=== PATIENT | male | born 1965 | race Caucasian/White ===

== ENCOUNTER → 2024-10-13 08:31 | Outpatient (BNVA) | payer MEDICAID, SELFPAY | PROVIDERS: Visit Provider Orthopaedic Surgery | DX: M54.2 Cervicalgia (principal); M54.9 Dorsalgia, unspecified | CPT/HCPCS: 72050; 72072 ==

== ENCOUNTER 2025-02-14 11:38 | Inpatient (IN) | payer MEDICAID, SELFPAY ==
[2025-02-14] VITALS (56 sets, daily range): BP systolic 100–139; BP diastolic 69–111; PULSE 106–170; RESP 13–29; TEMP 36.7–36.9; O2SAT 91–99; BMI 28.1
--- NOTE | 2025-02-14 11:38 | XRR_ITS ---
PROCEDURE INFORMATION: Exam: XR Chest Exam date and time: 02/14/2025 11:52 AM Age: 59 years old Clinical indication: Pain; Chest pressure; Additional info: Cp TECHNIQUE: Imaging protocol: Radiologic exam of the chest. Views: 1 view. COMPARISON: CR XR cervical spine 4-5V [id number] 10/13/2024 8:33 AM FINDINGS: Lungs: Unremarkable. No consolidation. Pleural spaces: Unremarkable. No pleural effusion. No pneumothorax. Heart/Mediastinum: Unremarkable. No cardiomegaly. Bones/joints: Unremarkable. XR/XR chest 1V portable [id number] IMPRESSION: No acute findings.
--- OUTSIDE RECORDS SUMMARY | 2025-02-14 11:41 | XMS_ITS | Encounter Summary ---
Author Organization [employer] [facility] Address [address] [place] [address] Care Team Providers Care Assistant Farm Operations Manager Name Role Phone Unavailable Primary Care Provider Unavailabl e Encounter Details Date Type Department Care Team (Late st Contact Info) Description 01/07/2001 Outpatient Historical [facility] [place] Tavo Dunne MD [address] [place] [address] Dental caries (Primary Dx) Social History Tobacco Use Types Packs/Day Years Used Date Smoking Tobacco: Never Assessed Sex and Gender Information Value Date Recorded Sex Assigned at Not on file 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
--- OUTSIDE RECORDS SUMMARY | 2025-02-14 11:41 | XMS_ITS | Encounter Summary ---
Author Organization [employer] [facility] Address [address] [place] [address] Care Team Providers Care Tight Cooper Name Role Phone Unavailable Primary Care Provider Unavailabl e Encounter Details Date Type Department Care Team (Late st Contact Info) Description 01/08/2001 Outpatient Historical [facility] [place] [facility] Tavo Dunne MD [address] [place] [address] Dental caries (Primary Dx) Social History Tobacco Use Types Packs/Day Years Used Date Smoking Tobacco: Never Assessed Sex and Gender Information Value Date Recorded Sex Assigned at Not on file 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
--- OUTSIDE RECORDS SUMMARY | 2025-02-14 11:41 | XMS_ITS | Clinical Summary ---
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
--- OUTSIDE RECORDS SUMMARY | 2025-02-14 11:41 | XMS_ITS | Encounter Summary ---
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
--- NOTE | 2025-02-14 11:48 | ECG_ITS ---
[employer] Test Date: 2025-02-14 Pat Name: Diego Alexandra Department: Room: Gender: Male Search Developer: : 1965 Requested By: Terese Escobar Order Number: [id number] Orozco MD: Thang Marroquin M.D. Measurements Intervals [place] Rate: 171 P: 0 PA: 0 QRS: 1 QRSD: 158 T: -78 QT: 280 QTc: 473 Interpretive Statements ARIAL FLUTTER VERSUS ATRIAL TACHYCARDIA WITH 2:1 CONDUCTION INTRAVENTRICULAR CONDUCTION DELAY [130+ ms QRS DURATION] POSSIBLE LATERAL MYOCARDIAL INFARCTION OF INDETERMINATE AGE[40+ ms Q WAVE AND/OR ST/T ABNORMALITY IN I/aVL/V5/V6] No previous ECG available for comparison Electronically Signed On 02-14-2025 12:01:52 EYEGLASS FRAMES POLISHER by Thang Marroquin M.D. [id number]
--- NOTE | 2025-02-14 11:55 | ED_ITS ---
HPI - Chest Pain 2 General: Chief Complaint: Chest Pain Stated Complaint: cp, L arm tingling/numbness Time Seen by Provider: 02/14/25 11:50 Source: patient Mode of arrival: ambulatory Limitations: no limitations History of Present Illness: 59-year-old male states he has been havi ng chest pain over the last few days. States he has hearts been racing as well now and palpitation since 1 week ago. Heart rate here is 170s. Denies any history of A-fib or SVT. Denies any shortness of breath denies any worse improved factors. States pain currently is a 5 out of 10 Related Data Home Medications ?Medication ?Instructions ?Recorded ?Confirmed No Known Home Medications 02/14/2501/18 Allergies Allergy/AdvReac Type Severity Reaction Status Date / Time No Known Allergies Allergy Verified 11/24/24 07:40 Review of Systems 2 Card: Reports: chest pain [facility] ED 2 PFSH: Social History Smoking and tobacco/nicotine status: former use of tobacco/nicotine Physical Exam 2 Const: COMMON NORMALS: patient oriented x3 HENMT: COMMON NORMALS: normocephalic and atraumatic HEAD & SCALP: n ormocephalic and atraumatic Neck/C-Spine: COMMON NORMALS: full ROM and supple Chest: COMMONS NORMALS: normal inspection of the chest and normal palpation of entire chest wall Resp: COMMON NORMALS: normal respiratory effort, No retractions, No use of accessory muscles and clear to auscultation bilaterally AUSCULTATION: clear to auscultation bilaterally Cardio: COMMON NORMALS: regular rhythm and No murmurs present (Cardio) R ATE: tachycardic RHYTHM: regular rhythm GI: COMMON NORMALS: Normal to inspection, nondistended, normoactive bowel sounds present, Soft to palpation, non-tender and no masses PALPATION: Yes Soft to palpation Extremity: COMMON NORMALS: normal to inspection and full ROM Neuro: COMMON NORMALS: patient oriented x3, moves all extremities and no focal motor deficits Psych: COMMON NORMALS: mental status grossly normal, Normal thought process present and cooperative THOUGHT PROCESS: Normal thought process present Skin: COMMON NORMALS: no rashes or lesions noted and no wounds GENERAL SKIN EXAM: no rashes or lesions noted Course 2 Vital Signs: Vital signs: Vital Signs Temperature 98.1 F 02/14/25 11:56 Pulse Rate 170 H 02/14/25 11:56 Respiratory Rate 18 02/14/25 11:56 Blood Pressure 126/91 02/14/25 11:56 Pulse Oximetry 96 02/14/25 11:56 Oxygen Delivery Me thod Room Air 02/14/25 11:56 MDM - Chest Pain Medical Decision Making Patient presents here with tachycardia along with some chest pain. Differentials SVT, atrial flutter with RVR. Pulm emboli, ACS. Initial EKG look like SVT did give him adenosine underlying rhythm was atrial flutter. Did give him Cardizem along with amiodarone he continued to have tachycardia here into the 160s was symptomatic did synchronize cardiovert him here and it was successful. Initial troponin is elevated this is likely due to a troponin leak from likely being in atrial flutter with RVR for a week. Did give a dose of Lovenox repeat troponin did go down. He has no signs of pulm emboli here I did speak to hospitalist Dr. Mcclelland will admit to cardiac stepdown. Reviewed chest x-ray myself showed no acute abnormality EKG time interpreted 1148 A-fib with RVR heart rate [address] elevation QRS 158 QTc 372 Repeat EKG interpretation time 1347 shows sinus tachycardia no ST elevation QRS 93 QTc 385 critical care time 50 minutes The high probability of a clinically significant, sudden or life threatening deterioration of the patient's cv system(s) required my full and direct attention, intervention and personal management. The critical care time is as shown. This time is in addition to time spent performing any reported procedures but includes the following: [x] Data and vital sign review and interpretation [x] Patient assessment, examination and intervention [x] Documentation [x] Medication orders and management Medical Records I reviewed the patient's medical records. Lab Data I reviewed the patient's lab results. 02/14/25 11:53 02/14/25 11:53 Radiology Impressions Chest X-Ray 02/14/25 11:38 IMPRESSION: No acute findings. Laboratory Results WBC 9.47 10^3/uL (3.29-11.43) 02/14/25 11:53 RBC 5.23 10^6/uL (3.85-5.65) 02/14/25 11:53 Hgb 15.80 g/dL (11.27-16.99) 02/14/25 11:53 Hct 43.8 % (37-53) 02/14/25 11:53 MCV 83.7 fl (82-101) 02/14/25 11:53 MCH 30.2 pg (27-33) 02/14/25 11:53 MCHC 36.1 g/dL (30-55) 02/14/25 11:53 RDW 11.9 % (12.1-15.1) L 02/14/25 11:53 Plt Count 232 10^3/cmm (157-399) 02/14/25 11:53 MPV 10.4 fL (7.4-10.4) 02/14/25 11:53 Neut % (Auto) 71.5 % 02/14/25 11:53 Lymph % (Auto) 20.2 % 02/14/25 11:53 Ceiba % (Auto) 6.8 % 02/14/25 11:53 Eos % (Auto) 0.7 % 02/14/25 11:53 Baso % (Auto) 0.5 % 02/14/25 11:53 Neut # (Auto) 6.77 10^3/uL (1.8-7.7) 02/14/25 11:53 Lymph # (Auto) 1.9 10^3/uL (0.8-4.8) 02/14/25 11:53 Ceiba # (Auto) 0.6 10^3/uL (0.2-0.9) 02/14/25 11:53 Eos # (Auto) 0.1 10^3/uL (0.0-0.8) 02/14/25 11:53 Baso # (Auto) 0.1 10^3/uL (0.0-0.1) 02/14/25 11:53 Nucleated RBC % (auto) 0 % 02/14/25 11:53 Nucleated RBCs # 0.0 /100WBC 02/14/25 11:53 Sodium 135 mmol/L (136-145) L 02/14/25 11:53 Potassium 4.4 mmol/L (3.5-5.1) 02/14/25 11:53 Chloride 98 mmol/L (98-107) 02/14/25 11:53 Carbon Dioxide 18 mmol/L (22-29) L 02/14/25 11:53 Anion Gap 23.4 (5-19) H 02/14/25 11:53 BUN 9 mg/dL (8-23) 02/14/25 11:53 Creatinine 0.8 mg/dL (0.7-1.2) 02/14/25 11:53 GFR Calculation 98.6 mL/min (90-130) 02/14/25 11:53 Glucose 304 mg/dL (65-115) H 02/14/25 11:53 Calculated Osmolality 290 mOsm/kg (285-295) 02/14/25 11:53 Calcium 9.3 mg/dL (8.5-10.5) 02/14/25 11:53 Total Bilirubin 1.8 mg/dL (0.15-1.2) H 02/14/25 11:53 AST 41 U/L (0-40) H 02/14/25 11:53 ALT 31 U/L (0-41) 02/14/25 11:53 Alkaline Phosphatase 84 U/L (40-130) 02/14/25 11:53 Troponin T Baseline 452 ng/L (0-15) H* 02/14/25 11:53 Troponin T 120 Minute 420.2 ng/L (0-15) H 02/14/25 13:17 Delta Troponin T -31.8 ABS# (0-10) L 02/14/25 13:17 Total Protein 6.6 g/dL (6.6-8.7) 02/14/25 11:53 Albumin 4.5 g/dL (3.5-5.2) 02/14/25 11:53 Globulin 2.1 g/dL (1.3-4.6) 02/14/25 11:53 Lipase 27 U/L (13-60) 02/14/25 11:53 All radiology interpretation(s) finalized by discharge Critical Care Time 2 Critical Care Time: Critical Care Time: Yes Total Critical Care Time: 50 Attestation: The high probability of a clinically significant, sudden or life threatening deterioration of the patient's cv system(s) required my full and direct attention, intervention and personal management. The critical care time is as shown. This time is in addition to time spent performing any reported procedures but includes the following: [x] Data and vital sign review and interpretation [x] Patient assessment, examination and intervention [x] Documentation [x] Medication orders and management Discharge Plan Discharge Patient Disposition: Admitted As Inpatient Admit Provider: Wong Mcclelland Clinical Impression: Chest pain, Atrial flutter with rapid ventricular response Condition: Stable Coding Level of Care Code ED Shotblaster for Chg Fwd Heart Score HEART Score Components History: Slightly Suspicous EKG: Normal Age: 45-64 yrs Risk Factors: 1 or 2 Risk Factors Troponin: Baseline Trop >45 ng/L HEART Score RESULT HEART Score: 4
[2025-02-14 11:58] LABS: Hematocrit 43.8 % (37-53); Hemoglobin 15.80 g/dL (11.27-16.99); Mean Corpuscular HGB Conc 36.1 g/dL (30-55); Mean Corpuscular Hemoglobin 30.2 pg (27-33); Mean Corpuscular Volume 83.7 fl (82-101); Nucleated Red Blood Cells % 0 %; Platelet Count 232 10^3/cmm (157-399); Red Blood Count 5.23 10^6/uL (3.85-5.65); White Blood Count 9.47 10^3/uL (3.29-11.43)
[2025-02-14] MEDS: adenosine 3 mg/mL SDV 2mL 6 MG IVP (12:00)
[2025-02-14] MEDS: amiodarone 150 MG/100 ML PREMIX 400 MG IV (12:06)
[2025-02-14 12:34] LABS: Alanine Aminotransferase 31 U/L (0-41); Albumin Level 4.5 g/dL (3.5-5.2); Alkaline Phosphatase 84 U/L (40-130); Aspartate Amino Transferase 41 U/L (0-40); Blood Urea Nitrogen 9 mg/dL (8-23); Calcium 9.3 mg/dL (8.5-10.5); Carbon Dioxide 18 mmol/L (22-29); Chloride 98 mmol/L (98-107); Globulin 2.1 g/dL (1.3-4.6); Glucose 304 mg/dL (65-115); Lipase 27 U/L (13-60); Osmolality Calculated 290 mOsm/kg (285-295); Sodium 135 mmol/L (136-145); Total Protein 6.6 g/dL (6.6-8.7)
[2025-02-14] MEDS: dilTIAZem 5 mg/mL SDV 5 mL 10 MG IVP (12:45)
[2025-02-14] MEDS: AMIODARONE HCL/D5W 900 MG/500 ML BAG 33.33 MG IV (12:49)
[2025-02-14 12:53] LABS: Anion Gap 23.4 (5-19); Potassium 4.4 mmol/L (3.5-5.1)
[2025-02-14 12:56] LABS: Troponin(5th) Baseline 452 ng/L (0-15)
--- NOTE | 2025-02-14 13:38 | ECG_ITS ---
[employer] Test Date: 2025-02-14 Pat Name: Diego Alexandra Department: Room: Gender: Male Heat Regulator: : 1965 Requested By: Terese Escobar Order Number: [id number] Pam MD: Pérez Rasmussen M.D. Measurements Intervals [place] Rate: 161 P: 0 LA: 0 QRS: 5 QRSD: 106 T: 105 QT: 181 QTc: 296 Interpretive Statements ATRIAL FLUTTER/TACHYCARDIA WITH RAPID VENTRICULAR RESPONSE POSSIBLE ANTEROLATERAL MYOCARDIAL INFARCTION , OF INDETERMINATE AGE [30 ms Q WAVE IN I/aVL/V3-V6] CRITICAL TEST RESULT Compared to ECG 02/14/2025 11:48:18 Intraventricular conduction delay no longer present Myocardial infarct finding still present Electronically Signed On 02-16-2025 21:04:20 FILTER TANK TENDER by Pérez Rasmussen M.D. [email or web address]
[2025-02-14] MEDS: etomidate 2 mg/mL INJ SDV 10 mL 10 MG IVP (13:44)
[2025-02-14 13:51] LABS: Troponin 5 2HR 420.2 ng/L (0-15); Troponin 5 2HR Delta -31.8 ABS# (0-10)
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
[2025-02-14 15:25] LABS: Magnesium 1.8 mg/dL (1.7-2.3)
[2025-02-14 15:34] LABS: Cholesterol 316 mg/dL (0-200); HDL Cholesterol 36 mg/dL (60-100); NT Pro B Type Natriuretic Pept 3622 pg/mL (0-125); Thyroid Stimulating Hormone 1.09 uIU/mL (0.27-4.20); Triglycerides 265 mg/dL (0-150)
[2025-02-14] MEDS: pantoprazole 40 mg SDV IVP (15:35)
[2025-02-14 15:36] LABS: Estmated Average Glucose 275; Hemoglobin A1C 11.2 % (4.0-6.0)
--- NOTE | 2025-02-14 18:00 | ECG_ITS ---
[facility] Test Date: 2025-02-14 Pat Name: Diego Alexandra Department: Room: [facility] Gender: Male Hand Trimmer: : 1965 Requested By: Terese Escobar Order Number: [id number] Pam MD: Pérez Rasmussen M.D. Measurements Intervals [place] Rate: 111 P: 44 PA: 116 QRS: 22 QRSD: 88 T: 73 QT: 328 QTc: 448 Interpretive Statements SINUS TACHYCARDIA WITH SHORT PA INTERVAL WITH OCCASIONAL SUPRAVENTRICULAR PREMATURE COMPLEXES Possible old inferior wall MT Compared to ECG 02/14/2025 13:40:54 Short PA interval now present Atrial flutter no longer present Myocardial infarct finding no longer present Electronically Signed On 02-16-2025 21:03:42 SOAP DRIER OPERATOR by Pérez Rasmussen M.D. [id number] [id number]
[2025-02-14 19:02] LABS: Troponin 5 6HR 576.9 ng/L (0-15); Troponin 5 6HR Delta 124.9 ng/L (0-12)
--- NOTE | 2025-02-14 22:10 | ECG_ITS ---
[employer] Test Date: 2025-02-15 Pat Name: Diego Alexandra Department: Room: ICU01 Gender: Male Welder Gas: : 1965 Requested By: Thang Marroquin Order Number: [id number] Orozco MD: Pérze Rasmussen M.D. Interpretive Statements Lung unchanged pre/post procedure; Intraprocedure shortess of breath; Symptoms resoled by discharge PROCEDURE: At the baseline, the EKG revealed sinus tachycardia with a possible old inferior wall DE and anterolateral wall DE. The baseline heart was 130 bpm with a blood pressue of 112/72 mm of Hg Lexiscan was infused over a period of 20 seconds. A total of 0.4 milligrams of Lexiscan was infused. The stress phase was continued for a total of 5 minutes. Heart rate at the end of the stress phase was 124 bpm with a blood pressure 109/63 mm of Hg. The EKG at the peak infusion revealed no significant changes. Sestamibi was injected 20 seconds after the Lexiscan infusion. Heart rate at the end of the recovery phase was 121 bpm with a blood pressure of 103/68 mm of Hg. CONCLUSION: 1. No significant EKG changes with the LexiScan infusion 2. No LexiScan induced chest pain or cardiac arrhythmia 3. Normal blood pressure and heart rate response 4. Sestamibi/sestamibi perfusion scan pending; see separate report. Electronically Signed On 02-16-2025 09:20:59 PMP CERTIFIED PROJECT MANAGER by Pérez Rasmussen M.D. [id number]
[2025-02-15] VITALS (66 sets, daily range): BP systolic 95–133; BP diastolic 64–90; PULSE 88–122; RESP 16–40; TEMP 36.3–36.9; O2SAT 94–99
[2025-02-15 04:32] LABS: Hematocrit 44.2 % (37-53); Hemoglobin 15.80 g/dL (11.27-16.99); Mean Corpuscular HGB Conc 35.7 g/dL (30-55); Mean Corpuscular Hemoglobin 30.3 pg (27-33); Mean Corpuscular Volume 84.7 fl (82-101); Nucleated Red Blood Cells % 0 %; Platelet Count 222 10^3/cmm (157-399); Red Blood Count 5.22 10^6/uL (3.85-5.65); White Blood Count 11.65 10^3/uL (3.29-11.43)
[2025-02-15 04:56] LABS: Anion Gap 21.9 (5-19); Blood Urea Nitrogen 9 mg/dL (8-23); Calcium 9.2 mg/dL (8.5-10.5); Carbon Dioxide 16 mmol/L (22-29); Chloride 99 mmol/L (98-107); Glucose 272 mg/dL (65-115); Osmolality Calculated 284 mOsm/kg (285-295); Potassium 3.9 mmol/L (3.5-5.1); Sodium 133 mmol/L (136-145)
--- NOTE | 2025-02-15 08:16 | PC.NURSE ---
0645 At time of report, patient not in room, down for a cardiac stress test.
--- NOTE | 2025-02-15 08:26 | PC.NURSE ---
0820 Back to room via wheelchair from [employer]. Made comforatable and reconnected all monitor leads. IV of Amniodarone infusing at 0.5 mg.
--- NOTE | 2025-02-15 14:01 | ECG_ITS ---
[facility] Date: 2025-02-15 Pat Name: Diego Alexandra Department: Room: [facility] Gender: Male Die Repairer Trimmer Dies: : 1965 Requested By: Flaco Rocha Order Number: [id number] Pam MD: Pérez Rasmussen M.D. Measurements Intervals [place] Rate: 111 P: 31 TX: 116 QRS: 23 QRSD: 95 T: 64 QT: 350 QTc: 476 Interpretive Statements SINUS TACHYCARDIA WITH SHORT TX INTERVAL Possible left atrial enlargement INFERIOR MYOCARDIAL INFARCTION , OF INDETERMINATE AGE [40+ ms Q WAVE AND/OR ST/T ABNORMALITY IN II/aVF] PROBABLE ANTEROLATERAL MYOCARDIAL INFARCTION , OF INDETERMINATE AGE [35 ms Q WAVE IN I/aVL/V3-V6] Compared to ECG 02/14/2025 18:00:07 Myocardial infarct finding now present Electronically Signed On 02-16-2025 19:01:36 SUPERVISOR STITCHING DEPARTMENT by Pérez Rasmussen M.D. [id number] [id number]
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
[2025-02-15 14:44] LABS: Troponin(5th) Baseline 876 ng/L (0-15)
[2025-02-15] MEDS: pantoprazole 40 mg SDV IVP (15:46)
--- NOTE | 2025-02-15 16:06 | ECG_ITS ---
[facility] Date: 2025-02-15 Pat Name: Diego Alexandra Department: Room: [facility] Gender: Male Feeder Driver: : 1965 Requested By: Flaco Rocha Order Number: [id number] Pam MD: Pérez Rasmussen M.D. Measurements Intervals [place] Rate: 111 P: 39 LA: 112 QRS: 37 QRSD: 97 T: 72 QT: 351 QTc: 479 Interpretive Statements SINUS TACHYCARDIA WITH SHORT LA INTERVAL INFERIOR MYOCARDIAL INFARCTION , OF INDETERMINATE AGE [40+ ms Q WAVE AND/OR ST/T ABNORMALITY IN II/aVF] PROBABLE ANTEROLATERAL MYOCARDIAL INFARCTION , PROBABLY OLD [35 ms Q WAVE IN I/aVL/V3-V6] Compared to ECG 02/15/2025 14:01:35 No significant changes Electronically Signed On 02-16-2025 20:54:43 CONSUMER SERVICES ADVISOR by Pérez Rasmussen M.D. [email or web address]
[2025-02-15] MEDS: AMIODARONE HCL/D5W 900 MG/500 ML BAG IV (16:08)
--- NOTE | 2025-02-15 16:24 | PC.NURSE ---
1615 Called report to Sancho on CSU to go to [facility] room. Gathered patients shoes, an jeans, but no shirt, is asking son if he took it home. Since I checked with ER, lanudary, and security with no result. Transfering via wheelchair to [facility] with all belongings including phone
[2025-02-15 16:37] LABS: Troponin 5 2HR Delta -14.2 ABS# (0-10)
[2025-02-15 16:38] LABS: Troponin 5 2HR 861.8 ng/L (0-15)
--- NOTE | 2025-02-15 16:48 | PC.NURSE ---
1620 Found shirt and sunglasses in room, and transfered them and his phone and phone spool tender with patient.No c/o's.
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
[2025-02-15 20:40] LABS: Troponin 5 6HR 1058 ng/L (0-15); Troponin 5 6HR Delta 182 ng/L (0-12)
--- NOTE | 2025-02-15 22:10 | NMCV_ITS ---
NM abe perf SPECT r/s* [id number] Diego Alexandra Age: 59 Gender: M : 1965 Exam Date: 02/15/2025 06:29 Ordering Phys: Thang Marroquin MD ([email or web address]) Technologist: RAMYA Carr Exam Location: [facility] Indications: cp STRESS TEST [facility] IMAGE PROTOCOL Rest/Stress 1 Lexiscan Day Radiopharmaceutical Dose (mCi) Administration Site Administered by Rest: Tc-99m 10.6 IV RAMYA Carr Sestamibi Stress:Tc-99m 32.7 IV RAMYA Morales Sestamibi Rest: 15-Feb-2025 60 Discovery 630 Stress: 15-Feb-2025 30 Discovery 630 0.4mg Lexiscan. Images obtained in supine and prone position. SPECT RESULTS Technical Quality: Good Raw Data Analysis: Normal Image Corrections: No attenuation or motion correction applied Summed Stress Score: 34 Summed Rest Score: 36 Summed Difference Score: 0 PERFUSION FINDINGS Large area of moderate to severely decreased tracer uptake involving the entire inferior and inferolateral segments, all the apical, mid anterior, mid anteroseptal and mid inferoseptal segments. No significant reversibility was noted in these areas. FUNCTIONAL RESULTS (calculated via Gated SPECT) Stress Image LV EF (%): 30 Stress EDV (mL):189 TID: 1.01 Stress ESV (mL):133 FUNCTIONAL FINDINGS: Segmental wall motion analysis revealing diffuse hypokinesia of the left ventricle. Moderately dilated LV cavity. Normal transient ischemic dilatation ratio IMPRESSIONS 1. Myocardial perfusion imaging revealing large area of persistent decreased tracer uptake involving the inferior, inferolateral, anterior, anteroseptal, inferoseptal and all the apical segments suggesting extensive myocardial scarring in the distribution of all the 3 coronary arteries. 2. Moderately diminished LV ejection fraction of 30%. 3. Severe diffuse hypokinesia of the left ventricle. 4. Moderately dilated LV cavity with an end-systolic volume of 133 mL. 5. No significant coronary ischemia, based on the above findings. Dr Pérez Rasmussen MD FAC (Electronically Signed) Final Date: 15 February 2025 09:29 S
[2025-02-16] VITALS (7 sets, daily range): BP systolic 107–126; BP diastolic 63–82; PULSE 92–102; RESP 19–28; TEMP 36.7–36.8; O2SAT 92–96
[2025-02-16] MEDS: insulin glargine 100 units/1 mL 5 UNIT SUBCUT (06:12)
[2025-02-16 07:23] LABS: Hematocrit 41.3 % (37-53); Hemoglobin 14.80 g/dL (11.27-16.99); Mean Corpuscular HGB Conc 35.8 g/dL (30-55); Mean Corpuscular Hemoglobin 30.4 pg (27-33); Mean Corpuscular Volume 84.8 fl (82-101); Nucleated Red Blood Cells % 0 %; Platelet Count 220 10^3/cmm (157-399); Red Blood Count 4.87 10^6/uL (3.85-5.65); White Blood Count 9.85 10^3/uL (3.29-11.43)
[2025-02-16 07:42] LABS: Alanine Aminotransferase 19 U/L (0-41); Albumin Level 3.5 g/dL (3.5-5.2); Alkaline Phosphatase 74 U/L (40-130); Blood Urea Nitrogen 11 mg/dL (8-23); Calcium 9.1 mg/dL (8.5-10.5); Chloride 99 mmol/L (98-107); Globulin 3.0 g/dL (1.3-4.6); Magnesium 1.8 mg/dL (1.7-2.3)
[2025-02-16 07:50] LABS: Anion Gap 25.1 (5-19); Aspartate Amino Transferase 20 U/L (0-40); Carbon Dioxide 13 mmol/L (22-29); Glucose 216 mg/dL (65-115); Osmolality Calculated 284 mOsm/kg (285-295); Potassium 4.1 mmol/L (3.5-5.1); Sodium 134 mmol/L (136-145); Total Protein 6.0 g/dL (6.6-8.7)
--- NOTE | 2025-02-16 13:29 | P.PN_ITS ---
<Statement entered by Edna Mendez MD - 02/17/25 18:57> Patient was evaluated and cared for in conjunction with an advanced practice practitioner. I personally examined the patient and reviewed the chart and all pertinent data including imaging, telemetry, and laboratory results. I discussed the patient in detail with the advanced practice practitioner. Please see their note for complete H&P testing result and agreed upon plan of care for the patient Subjective 2 Subjective: Patient is doing well this AM. Denies any chest pain or shortness of breath. EF was 35% on echo. Moderate to severe mitral valve regurgitation with multiple wall motion abnormalities. Vitals/I&O/Wt Last Vital Signs Temp 98.2 F 02/16/25 07:25 Pulse 101 H 02/16/25 12:00 Resp 28 H 02/16/25 12:00 BP 108/79 02/16/25 12:00 Pulse Ox 96 02/16/25 12:00 O2 Del Method Room Air 02/16/25 04:00 02/15/25 02/16/25 02/16/25 22:59 06:59 14:59 Intake Total 431.918 / 1019.464 480 / 1499.464 860 / 860 Output Total 250 / 1050 200 / 200 Balance 431.918 / 219.464 230 / 449.464 660 / 660 Weight last 48 hrs Weight 195 lb 9.6 oz Weight 192 lb Weight 196 lb Physical Exam 2 Narrative: General: No apparent distress, healthy appearing, well nourished HENMT: normoceophalic Muskuloskeletal: Full ROM Respiratory: Normal respiratory effort, clear to auscultation bilaterally throughout all lung molina, no use of accessory muscles Cardio: No JVD, regular rate, regular rhythm, S1 S2 normal, no murmurs, peripheral pulses 2+ radial palpated bilaterally GI: Normal to inspection, nondistended Extremities: Full ROM, normal, normal capillary refill, no cyanosis or edema Neuro: Alert and oriented x4, no focal motor deficits Psych: Affect normal, denies suicidal ideation, mental status grossly normal Skin: no abnormalities Data 02/16/25 06:47 02/16/25 06:47 A&P Assessment and plan 1. Chest pain: 2. Atrial flutter with rapid ventricular response: 3. Stenosis of cervical spine region: 4. Blindness of right eye: 5. Nausea without vomiting: Plan: At this time, patient is refusing left heart cath. He does understand he could have underlying coronary stenosis that could result in heart attack or even . He states he wants to take a natural approach . At this time, will optimize medical therapy for systolic heart failure and reduced ejection fraction 35%. Transition to amio PO 400 mg BID. Switch patient to long acting metoprolol succinate 25 mg daily for heart failure and better rate control. Start low dose Entresto. Start Jardiance/Farxiga Continue aspirin. PDMP PDMP Reviewed: Not Reviewed Attestations 2 Medical Necessity Statement*: Deferred to primary. Coding Level of Care Code Acute Code for [facility] Diagnoses Chest pain R07.9 Atrial flutter with rapid ventricular response I48.92 Stenosis of cervical spine region M48.02 Blindness of right eye H54.40 Nausea without vomiting R11.0
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
--- NOTE | 2025-02-16 14:54 | USCV_ITS ---
Diego Alexandra Age: 59 Gender: M : 1965 Exam Date: 02/16/2025 01:32 Ordering Phys: Daya Garcia DECORATOR L[employer]ING [employer]TURES [employer] BRUSHER Technologist: BILLY Exam Location: [facility] Indication: chest pain protocol. no priors BP: 122 / 81 HR: 97 Rhythm: Atrial fibrillation Technical Quality: Adequate MEASUREMENTS (Male / Female) Normal Values 2D ECHO LV Diastolic Diameter PLAX 4.1 cm 4.2 - 5.9 / 3.9 - 5.3 cm IVS Diastolic Thickness 1.3 cm 0.6 - 1.0 / 0.6 - 0.9 cm IVS Systolic Thickness 1.7 cm LVPW Diastolic Thickness 1.5 cm 0.6 - 1.0 / 0.6 - 0.9 cm LVPW Systolic Thickness 1.4 cm LVOT Diameter 1.9 cm LV Ejection Fraction 2D Teich 42.3 % LV Ejection Fraction MOD 4C 35.1 % LV Ejection Fraction MOD 2C 33.2 % LV Ejection Fraction 2C AL 31.7 % LA Diameter 3.8 cm Aorta at Sinotubular Diameter 3.0 cm IVC Diameter 2.3 cm M-MODE LA Ao Ratio MM 1.1 AV Cusp Separation MM 1.5 cm DOPPLER AV Peak Velocity 96.0 cm/s LVOT Peak Velocity 73.0 cm/s AV Area Cont Eq vti 2.3 cm squared AV Area Cont Eq pk 2.2 cm squared MV Peak Velocity 80.0 cm/s MV Area PHT 3.1 cm squared Mitral E to A Ratio 729.0 TV Peak E Velocity 41.0 cm/s FINDINGS Left Ventricle Severe hypokinesia of the mid and apical septum and the anteroseptal segments. Moderate diffuse hypokinesia of the inferior wall and basal inferolateral wall segments. Overall ejection fraction around 35%.mild left ventricular hypertrophy. Right Ventricle Normal right ventricular size and systolic function. Right Atrium Normal right atrial size. Left Atrium Mildly increased left atrial size. IA Septum Appears to be intact Mitral Valve Moderate-severe mitral valve regurgitation. Aortic Valve No gross abnormalities noted Tricuspid Valve No gross abnormalities noted Pulmonic Valve Pulmonic valve not well visualized. Pericardium No pericardial effusion. Aorta Normal aortic annulus size. IVC Possibly of normal size CONCLUSIONS Multiple wall motion abnormalities with diminished ejection fraction of 35%. Mildly increased left atrial size. Moderate-severe mitral valve regurgitation. There is no pericardial effusion. There are no intracardiac masses. No similar previous studies are available for comparison Dr Pérez Rasmsusen MD [facility] (Electronically Signed) Final Date: 16 February 2025 13:19 S
--- NOTE | 2025-02-16 16:19 | PC.NURSE ---
per Allie Moraes NP, give the amio 400 po at 1700 and stop the amio gtt two hours after.
[2025-02-16] MEDS: pantoprazole 40 mg SDV IVP (16:32)
[2025-02-17] VITALS: BP 112/66; PULSE 89; RESP 18; O2SAT 94
[2025-02-17 03:48] VITALS: BP 110/85; PULSE 89; RESP 21; TEMP 36.7; O2SAT 94
[2025-02-17 04:23] LABS: Hematocrit 39.5 % (37-53); Hemoglobin 14.40 g/dL (11.27-16.99); Mean Corpuscular HGB Conc 36.5 g/dL (30-55); Mean Corpuscular Hemoglobin 30.4 pg (27-33); Mean Corpuscular Volume 83.5 fl (82-101); Nucleated Red Blood Cells % 0 %; Platelet Count 207 10^3/cmm (157-399); Red Blood Count 4.73 10^6/uL (3.85-5.65); White Blood Count 9.03 10^3/uL (3.29-11.43)
[2025-02-17 04:41] LABS: Alanine Aminotransferase 15 U/L (0-41); Albumin Level 3.6 g/dL (3.5-5.2); Alkaline Phosphatase 74 U/L (40-130); Anion Gap 18.4 (5-19); Aspartate Amino Transferase 13 U/L (0-40); Blood Urea Nitrogen 11 mg/dL (8-23); Calcium 9.0 mg/dL (8.5-10.5); Carbon Dioxide 18 mmol/L (22-29); Chloride 101 mmol/L (98-107); Globulin 2.7 g/dL (1.3-4.6); Glucose 172 mg/dL (65-115); Magnesium 1.8 mg/dL (1.7-2.3); Osmolality Calculated 281 mOsm/kg (285-295); Potassium 3.4 mmol/L (3.5-5.1); Sodium 134 mmol/L (136-145); Total Protein 6.3 g/dL (6.6-8.7)
[2025-02-17] MEDS: metoprolol succinate ER (24 HR) 25 mg Tablet PO (05:10)
[2025-02-17] MEDS: insulin glargine 100 units/1 mL 5 UNIT SUBCUT (06:24)
[2025-02-17 08:00] VITALS: BP 102/63; PULSE 85; RESP 19; TEMP 36.6; O2SAT 96
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
[2025-02-17 12:00] VITALS: BP 114/71; PULSE 97; RESP 19; O2SAT 94
--- NOTE | 2025-02-17 16:08 | PM.PN ---
Documented by User: Allie Moraes NP 02/17/25 16:14 Subjective Subjective: Patient doing well this morning no complaints of chest pain or shortness of breath. Continues to decline cath and wants medical management only. Discussed LifeVest with patient. Vitals are stable after starting Entresto. Labs are stable. Vitals/I&O/Wt Last Vital Signs Temp 97.8 F 02/17/25 08:00 Pulse 97 02/17/25 12:00 Resp 19 H 02/17/25 12:00 BP 114/71 02/17/25 12:00 Pulse Ox 94 02/17/25 12:00 O2 Del Method Room Air 02/17/25 03:48 02/17/25 02/17/25 02/17/25 06:59 14:59 22:59 Intake Total 240 / 1340 720 / 720 Output Total 0 / 590 Balance 240 / 750 720 / 720 Weight last 48 hrs Weight 195 lb 9.6 oz Weight 195 lb 9.6 oz Physical Exam Narrative: General: No apparent distress, healthy appearing, well nourished HENMT: normoceophalic Muskuloskeletal: Full ROM Respiratory: Normal respiratory effort, clear to auscultation bilaterally throughout all lung molina, no use of accessory muscles Cardio: No JVD, regular rate, regular rhythm, S1 S2 normal, no murmurs, peripheral pulses 2+ radial palpated bilaterally GI: Normal to inspection, nondistended Extremities: Full ROM, normal, normal capillary refill, no cyanosis or edema Neuro: Alert and oriented x4, no focal motor deficits Psych: Affect normal, denies suicidal ideation, mental status grossly normal Skin: no abnormalities Data 02/17/25 03:53 02/17/25 03:53 A&P Assessment and plan 1. Chest pain: 2. Atrial flutter with rapid ventricular response: 3. Stenosis of cervical spine region: 4. Non-ST elevation (NSTEMI) myocardial infarction: Plan: Patient is doing well. Continues to decline cath and wants medical management only. Recommended life vest. Patient agrees. Would recommend discharge on Eliquis 5 mg twice daily for A-flutter with Barney Vascor of 3. Continue aspirin, Entresto, Atorvastatin, metoprolol 25, amio 400 BID x 1 week, then 200 daily. F/U in the clinic in 1 week. PDMP PDMP Reviewed: Not Reviewed Attestations Medical Necessity Statement*: Deferred to primary. Coding Level of Care Code Acute Code for [facility] Fwd Diagnoses Chest pain R07.9 Atrial flutter with rapid ventricular response I48.92 Stenosis of cervical spine region M48.02 Non-ST elevation (NSTEMI) myocardial infarction I21.4 Documented by User: Edna Mendez MD 02/17/25 17:05 Data 02/17/25 03:53 02/17/25 03:53 A&P Assessment and plan 1. Chest pain: 2. Atrial flutter with rapid ventricular response: 3. Stenosis of cervical spine region: 4. Non-ST elevation (NSTEMI) myocardial infarction: Plan: Patient continues to refuse invasive strategy he would not like to go for angiogram. Stress test was performed that showed possible old myocardial infarction however his presentation is more concerning for acute coronary syndrome given non-STEMI, I am afraid that he may have underlying multivessel coronary artery disease it was discussed with the patient in detail that he would like to be treated medically only. Will optimize medication in the form of switching to amiodarone continuing apixaban and optimizing medications for heart failure including Entresto. Will continue to monitor. PDMP PDMP Reviewed: Not Reviewed Coding Level of Care Code Acute Code for g Fwd Diagnoses Chest pain R07.9 Atrial flutter with rapid ventricular response I48.92 Stenosis of cervical spine region M48.02 Non-ST elevation (NSTEMI) myocardial infarction I21.4
[2025-02-17] MEDS: pantoprazole 40 mg SDV IVP (17:29)
== END 2025-02-17 18:18 | disposition home or self-care (01) | DRG 201 ==
LOC: ER 12:04 → ICU 14:05 → CSU 02-15 16:35
PROVIDERS: Clinical Nurse Specialist Acute Care; Student in an Organized Health Care Education/Training Program; Admitting Provider Internal Medicine; Emergency Provider Emergency Medicine; Visit Provider Internal Medicine
DX: I48.92 Unspecified atrial flutter (principal); I24.9 Acute ischemic heart disease, unspecified; M48.02 Spinal stenosis, cervical region; Z90.01 Acquired absence of eye; E11.9 Type 2 diabetes mellitus without complications; I50.20 Unspecified systolic (congestive) heart failure; Z87.891 Personal history of nicotine dependence
CPT/HCPCS: 36415; 36416; 71045; 78452; 80048; 80053; 80061; 82962; 83036; 83690; 83735; 83880; 84100; 84443; 84484; 85025; 93005; 93017; 93306; 96365; 96366; 96372; 96375; 99291; A4222; A9500; J0153; J0282; J0283; J1650; J1815; J2470; J2785; J3490; J7030; J9999

== ENCOUNTER 2025-02-20 15:58 | Emergency (ER) | payer MEDICAID, SELFPAY ==
--- OUTSIDE RECORDS SUMMARY | 2025-02-20 16:05 | XMS_ITS | Encounter Summary ---
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
--- OUTSIDE RECORDS SUMMARY | 2025-02-20 16:05 | XMS_ITS | Clinical Summary ---
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
--- OUTSIDE RECORDS SUMMARY | 2025-02-20 16:05 | XMS_ITS | Encounter Summary ---
Author Organization [employer] [facility] Address [address] [place] [address] Care Team Providers Care Iron Assorter Name Role Phone Unavailable Primary Care Provider Unavailabl e Encounter Details Date Type Department Care Team (Late st Contact Info) Description 01/08/2001 Outpatient Historical [facility]ERY Tavo Dunne MD [address] [place] [address] Dental caries (Primary Dx) Social History Tobacco Use Types Packs/Day Years Used Date Smoking Tobacco: Never Assessed Sex and Gender Information Value Date Recorded Sex Assigned at Not on file 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
--- OUTSIDE RECORDS SUMMARY | 2025-02-20 16:05 | XMS_ITS | Encounter Summary ---
Author Organization [employer] [facility] Address [address] [place] [address] Care Team Providers Care Beach Patrol Lieutenant Name Role Phone Unavailable Primary Care Provider Unavailabl e Encounter Details Date Type Department Care Team (Late st Contact Info) Description 01/07/2001 Outpatient Historical [facility] Tavo Dunne MD [address] [place] [address] Dental caries (Primary Dx) Social History Tobacco Use Types Packs/Day Years Used Date Smoking Tobacco: Never Assessed Sex and Gender Information Value Date Recorded Sex Assigned at Not on file 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
[2025-02-20 16:07] VITALS: BP 145/81; PULSE 92; RESP 18; TEMP 36.6; O2SAT 100; BMI 28.1
--- NOTE | 2025-02-20 16:11 | USR_ITS ---
PROCEDURE INFORMATION: Exam: US Duplex Right Upper Extremity Veins, Limited Exam date and time: 02/20/2025 4:39 PM Age: 59 years old Clinical indication: Pain; Arm, upper; Right; Recent iv; Additional info: Arm pain TECHNIQUE: Imaging protocol: Real-time duplex ultrasound of the right Upper Extremity with 2-D hull scale, color Doppler flow and spectral waveform analysis with image documentation. Limited exam focused on the right upper extremity veins. COMPARISON: No relevant prior studies available. FINDINGS: Right deep veins: Unremarkable. Axillary, brachial, radial and ulnar veins are patent throughout without thrombus. Normal Doppler waveforms. Normal compressibility and/or augmentation response. Visualized internal jugular and subclavian veins are patent. Superficial veins: Heterogeneously hypoechoic, occlusive thrombus in the cephalic vein. Visualized basilic vein patent without thrombus. Soft tissues: Unremarkable. US/[place] [id number] IMPRESSION: 1. No sonographic evidence of deep vein thrombosis. 2. Heterogeneously hypoechoic, occlusive thrombus in the cephalic vein.
--- NOTE | 2025-02-20 16:23 | ED_ITS ---
HPI - Extremity Problem General: Chief complaint: Extremity Injury, Upper Stated complaint: upper right arm pain Time Seen by Provider: 02/20/25 16:07 Source: patient Mode of arrival: ambulatory Limitations: no limitations History of Present Illness: 59-year-old male who recently been in [facility] states he had an IV in his right arm he states that since being discharged has had swelling and pain to that upper arm and is concerned of a blood clot. He denies any chest pain he denies any fevers denies any worse improved factors rates the pain a 5 out of 10. Related Data Previous Rx's ?Medication ?Instructions ?Recorded amiodarone 200 mg tablet 200 mg PO DAILY #60 tabs 06/09 amiodarone 200 mg tablet (Pacerone) 400 mg (2 x 200 mg ) PO BID #14 tabs 02/17/25 apixaban 5 mg tablet (Eliquis) 5 mg PO BID #60 tabs aspirin 81 mg tablet,delayed 81 mg PO DAILY #30 tabs 1 04/20/24 release atorvastatin 40 mg tablet 40 mg PO DAILY #30 tabs 06/09 dapagliflozin propanediol 5 mg 5 mg PO DAILY #30 tabs 02/17/25 tablet (Farxiga) insulin glargine 100 unit/mL 5 unit (0.05 mL) SUBCUT Q AM #10 mL 02/17/25 subcutaneous solution (Lantus U-100 Insulin) metoprolol succinate 25 mg 25 mg PO DAILY #3 tabs 06/09 tablet,extended release 24 hr sacubitril 24 mg-valsartan 26 mg 1 tab PO BID #60 tabs 02/17/25 tablet (Entresto) Allergies Allergy/AdvReac Type Severity Reaction Status Date / Time No Known Allergies Allergy Verified 11/24/24 07:40 [facility] ED PFSH: Social History Smoking and tobacco/nicotine status: former use of tobacco/nicotine Physical Exam Const: COMMON NORMALS: no acute distress, patient oriented x3 and healthy appearing HENMT: COMMON NORMALS: normocephalic and atraumatic HEAD & SCALP: normocephalic and atraumatic Neck/C-Spine: COMMON NORMALS: full ROM and supple Chest: COMMONS NORMALS: normal inspection of the chest Resp: COMMON NORMALS: normal respiratory effort Cardio: COMMON NORMALS: regular rate, regular rhythm and No murmurs present (Cardio) RATE: regular rate RHYTHM: regular rhythm Extremity: COMMON NORMALS: full ROM NARRATIVE EXTREMITY EXAM: Tenderness along right upper arm with tenderness hardness to right vein over the bicep Neuro: COMMON NORMALS: patient oriented x3, moves all extremities and no focal motor deficits Psych: COMMON NORMALS: mental status grossly normal, Normal thought process present and cooperative THOUGHT PROCESS: Normal thought process present Skin: COMMON NORMALS: no rashes or lesions noted and no wounds GENERAL SKIN EXAM: no rashes or lesions noted Course Vital Signs: Vital signs: Vital Signs Temperature 97.8 F 02/20/25 16:07 Pulse Rate 92 02/20/25 16:07 Respiratory Rate 18 02/20/25 16:07 Blood Pressure 145/81 02/20/25 16:07 Pulse Oximetry 100 02/20/25 16:07 Oxygen Delivery Me thod Room Air 02/20/25 16:07 MDM - Extremity (Nontraumatic) Medical Decision Making Patient presents with pain in his right arm ultrasound does show a superficial venous thrombosis no signs of DVT in that arm. He is already on Eliquis he is continue his meds he is to do warm compresses on the arm he has no chest pain here no shortness of breath he is stable for discharge follow-up PCP return if worsening. Medical Records I reviewed the patient's medical records. All radiology interpretation(s) finalized by discharge Discharge Plan Discharge Patient Disposition: Home Clinical Impression: Superficial venous thrombosis of arm Condition: Stable Prescriptions: No Action atorvastatin 40 mg Tablet 40 mg PO DAILY Qty: 30 0RF insulin glargine [Lantus U-100 Insulin] 100 unit/mL Solution 5 unit SUBCUT QAM Qty: 10 0RF amiodarone [Pacerone] 200 mg Tablet 400 mg PO BID Qty: 14 0RF aspirin 81 mg Tablet,Delayed Release (Dr/Ec) 81 mg PO DAILY Qty: 30 0RF metoprolol succinate 25 mg Tablet Extended Release 24 Hr 25 mg PO DAILY Qty: 3 0RF sacubitril-valsartan [Entresto] 24-26 mg Tablet 1 tab PO BID Qty: 60 0RF amiodarone 200 mg tablet 200 mg PO DAILY Qty: 60 0RF Rx Instructions: Admitted on 40 mg p.o. twice daily for 7 days and then 200 mg p.o. daily. Please start taking 20 mg p.o. daily after for 7 days Eliquis 5 mg tablet 5 mg PO BID Qty: 60 0RF dapagliflozin propanediol [Farxiga] 5 mg tablet 5 mg PO DAILY Qty: 30 0RF Discharge Orders: Discharge ED (Routine); Ordered 02/20/25 Ordered By: Terese Escobar Discharge Diet: Advance as tolerated Discharge Activity: Resume usual activity Patient Instructions: Superficial Thrombophlebitis (ED) Print Language: Stateless Coding Level of Care Code ED Production Control Specialist for Enrique Grayson
[2025-02-20 16:54] VITALS: BP 125/78; PULSE 94; O2SAT 100
== END 2025-02-20 17:04 | disposition home or self-care (01) ==
PROVIDERS: Emergency Provider Emergency Medicine
DX: I82.611 Acute embolism and thrombosis of superficial veins of right upper extremity (principal); Z79.4 Long term (current) use of insulin; Z79.82 Long term (current) use of aspirin; Z87.891 Personal history of nicotine dependence
CPT/HCPCS: 93971; 99285

== ENCOUNTER → 2025-02-26 10:42 | Outpatient (BNVA) | payer MEDICAID, SELFPAY | DX: E11.69 Type 2 diabetes mellitus with other specified complication (principal) | CPT/HCPCS: 80053 ==